=== PATIENT | female | born 1930 | race Caucasian/White ===

== ENCOUNTER → 2016-09-15 | Outpatient (CLI) | payer MEDICARE, OTHER ==
[~2016-09-15] MED LIST: ACIDOPHILU1 Billion; ASPIRIN 81M81 MG/TA2 PO; CALCIUM500 MG PO; COLACE 100100 MG/CAP PO; ESTRACE0.1 MG/GM VG; LASIX 40MG TABL40 MG PO; METAMUCIL1 PDR PO; MULTIVITAMIN FO1 CAP PO; OMEGA 31000 MG PO; SYNTHROID0.05 MG/TA PO
== END ==
LOC: COL.RAD 09:04
DX: R20.2 Paresthesia of skin (principal); Z53.09 Procedure and treatment not carried out because of other contraindication

== ENCOUNTER → 2016-10-03 | Outpatient (CLI) | payer MEDICARE, OTHER | LOC: COL.RAD 11:52 | DX: Z13.89 Encounter for screening for other disorder (principal); G31.9 Degenerative disease of nervous system, unspecified | CPT/HCPCS: A9585 ==

== ENCOUNTER → 2016-12-06 | Outpatient (REF) | LOC: ZLAB.WCH 18:07 | DX: Z02.89 Encounter for other administrative examinations (principal) ==

== ENCOUNTER → 2017-11-29 | Outpatient (REF) | LOC: ZLAB.WCH 15:58 | DX: Z01.89 Encounter for other specified special examinations (principal) ==

== ENCOUNTER → 2018-03-30 | Outpatient (REF) | LOC: ZLAB.WCH 12:10 | DX: Z01.89 Encounter for other specified special examinations (principal) ==